=== PATIENT | female | born 2000 | race African-American/Black ===

== ENCOUNTER 2019-03-10 13:01 | Emergency (ER) | payer OTHER, MEDICAID ==
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
[2019-03-10 16:30] VITALS: BP 130/79
== END 2019-03-10 16:30 | disposition home or self-care (01) ==
LOC: ER 13:01
DX: S80.12XA Contusion of left lower leg, initial encounter (principal); M54.2 Cervicalgia; R07.81 Pleurodynia; V49.40XA Driver injured in collision with unspecified motor vehicles in traffic accident, initial encounter; W22.11XA Striking against or struck by driver side automobile airbag, initial encounter; F17.200 Nicotine dependence, unspecified, uncomplicated; F12.10 Cannabis abuse, uncomplicated
CPT/HCPCS: 71046; 99283